=== PATIENT | male | born 1950 | race Caucasian/White ===

== ENCOUNTER → 2018-03-09 | Outpatient (CLI) | payer OTHER ==
[~2018-03-09] MED LIST: ASCO10004 PO; BILB100C PO; CALC-534 PO; CYAN500T2 PO; FAMC500T33 PO; GRAP50CA3 PO; LEVO50TA5 PO; LUTE40CA PO; LYSI500T25 PO; MULT-658 PO; PSYLLIUM HUSK PO; PYRI100T2 PO; ROSU5TAB PO; SAW/1TAB2 PO; UBID1CAP43 PO; [UNRECOGNIZED DRUG - OTHER] PO; magnesium PO; zeaxanthin PO
== END | disposition home or self-care (01) ==
LOC: STAR 08:50
PROVIDERS: ATTEND Surgery
DX: Z01.818 Encounter for other preprocedural examination (principal); K40.20 Bilateral inguinal hernia, without obstruction or gangrene, not specified as recurrent; K42.9 Umbilical hernia without obstruction or gangrene
CPT/HCPCS: 93005

== ENCOUNTER 2018-03-16 09:42 | Day surgery (SDC) | payer OTHER ==
[~2018-03-16] VITALS: Ht 182.9 cm; Wt 86.7 kg
[~2018-03-16 09:42] MED LIST changes: +BUPIVACAINE/PF-EPI 0.5% 1:200K ONE
[2018-03-16] MEDS ORDERED: LACTATED RINGERS 1,000 ML IV SCH (10:17)
[2018-03-16 10:20] VITALS: BP 122/86
[2018-03-16] MEDS ORDERED: ACETAMINOPHEN 500 MG TABLET PO ONE (10:30)
[2018-03-16] MEDS ORDERED: GABAPENTIN 300 MG CAPSULE PO ONE (10:30)
[2018-03-16] MEDS ORDERED: FENTANYL PF 250 MCG/5ML ONE (11:54)
[2018-03-16] MEDS ORDERED: MIDAZOLAM 1 MG/ML, 2ML ONE (11:54)
[2018-03-16] MEDS ORDERED: GLYCOPYRROLATE 0.2MG/1ML, 5ML ONE (11:55)
[2018-03-16] MEDS ORDERED: NEOSTIGMINE 1 MG/ML, 10ML ONE (11:55)
[2018-03-16] MEDS ORDERED: PROPOFOL 10 MG/ML, 20ML ONE (11:55)
[2018-03-16] MEDS ORDERED: CEFAZOLIN 1,000 MG ONE (11:55)
[2018-03-16] MEDS ORDERED: ROCURONIUM 10MG/ML,5ML ONE (11:55)
[2018-03-16] MEDS ORDERED: hydrALAzine 20 MG/ML, 1ML IV PRN (13:00)
[2018-03-16] MEDS ORDERED: PROMETHAZINE 25 MG/ML, 1ML IM PRN ×2 (13:00)
[2018-03-16] MEDS ORDERED: PROMETHAZINE 25 MG SUPP PR PRN (13:00)
[2018-03-16] MEDS ORDERED: PROMETHAZINE 25 MG/ML, 1ML IV PRN (13:00)
[2018-03-16] MEDS ORDERED: FENTANYL PF 100 MCG/2ML IV PRN (13:00)
[2018-03-16] MEDS ORDERED: MEPERIDINE/PF 25MG/0.5ML IVPush PRN (13:00)
[2018-03-16] MEDS ORDERED: LABETALOL 5MG/ML, 20ML IV PRN (13:00)
[2018-03-16] MEDS ORDERED: ONDANSETRON ODT 8 MG PO PRN (13:00)
[2018-03-16] MEDS ORDERED: ONDANSETRON 2MG/ML, 2ML IV PRN (13:00)
[2018-03-16] MEDS ORDERED: MORPHINE SULFATE 4 MG/ML, 1ML IVPush PRN (13:00)
[2018-03-16] MEDS ORDERED: HYDROmorphone 2 MG/ML, 1ML IVPush PRN (13:00)
[2018-03-16] MEDS ORDERED: OXYcodone 5 MG/5 ML ORAL.SOL UDC PO PRN (13:00)
[2018-03-16] MEDS ORDERED: PROMETHAZINE 12.5 MG SUPP PR PRN (13:00)
[2018-03-16] MEDS ORDERED: BUPIVACAINE/PF-EPI 0.5% 1:200K ONE (13:18)
[2018-03-16] MEDS ORDERED: FENTANYL PF 100 MCG/2ML ONE (14:00)
[2018-03-16] MEDS ORDERED: KETOROLAC 30 MG/1 ML ONE (14:10)
[2018-03-16] MEDS ORDERED: MEPERIDINE/PF 25MG/ML,1ML ONE (14:43)
[2018-03-16] MEDS ORDERED: OXYcodone 5 MG/5 ML ORAL.SOL UDC ONE (14:49)
== END 2018-03-16 16:40 | disposition home or self-care (01) ==
LOC: OUT 09:42
PROVIDERS: ATTEND Surgery
DX: K40.20 Bilateral inguinal hernia, without obstruction or gangrene, not specified as recurrent (principal); K42.9 Umbilical hernia without obstruction or gangrene; E03.9 Hypothyroidism, unspecified; E78.5 Hyperlipidemia, unspecified; Z72.89 Other problems related to lifestyle
CPT/HCPCS: 49585; 49650; C1781; J0690; J1885; J2175; J2250; J2405; J2704; J2710; J3010; J3490; J7120